=== PATIENT | female | born 1935 | race Caucasian/White ===

== ENCOUNTER 2016-07-06 06:25 | Emergency (ER) | payer MEDICARE ==
[~2016-07-06] VITALS: Ht 154.9 cm; Wt 63.5 kg
[~2016-07-06 06:25] MED LIST: AMLO5TAB22 PO; APIX2.5T PO; ATOR10TA PO; HUMSS SQ; HYDR25TA35 PO; LANTUS2P SC; MEMA28CA PO; METO25 PO; NITR0.4S SL; OMEP20TA39 PO
[2016-07-06 06:35] VITALS: BP 182/71; PULSE 77; RESP 22; TEMP 98.1; O2SAT 97
[2016-07-06 06:55] VITALS: BP 182/71; PULSE 79; RESP 16; TEMP 98.1; O2SAT 97
--- NOTE | 2016-07-06 06:56 | PD ---
HPI Chief Complaint: Fall Time Seen by Provider: 06:54 Travel History International Travel<30 days: No (unknown) Contact w/Intl Traveler<30days: No (unknown) History of Present Illness HPI 80yo F with PMH of PE on eliquis, HTN, IDDM presents to the ED with c/o left head, left shoulder and left hip pain s/p fall 20 minutes ago. Pt is suppose to use walker but did not so she think she slip and fell but unsure since she normally needs walker to walk. Pt also with chest pain after falling. Denies any dizziness or chest pain prior to falling. Denies any visual changes, sob, n /v, abdominal pain, focal weakness or numbness. PFSH Past Medical History Hx Anticoagulant Therapy: Yes Anemia: Yes Arthritis: Yes Asthma: No Autoimmune Disease: No Blood Disorders: No Anxiety: Yes Depression: Yes Heart Rhythm Problems: No Cancer: No Cardiovascular Problems: Yes High Cholesterol: Yes Chemotherapy: No Chest Pain: Yes Congestive Heart Failure: Yes COPD: Yes Cerebrovascular Accident: Yes (2016) Dementia: Yes Diabetes: Yes (TYPE 2 ) Diminished Hearing: No Endocrine: Yes Gastrointestinal Disorders: Yes GERD: Yes Glaucoma: No Genitourinary: Yes (Recurrent UTI's) Headaches: Yes (OCCASSIONAL) Hepatitis: No Hiatal Hernia: Yes Hypertension: Yes Immune Disorder: No Kidney Stones: No Musculoskeletal: Yes Neurologic: Yes Psychiatric: No Reproductive: No Respiratory: Yes Immunizations Current: No Migraines: No Myocardial Infarction: Yes Radiation Therapy: No Renal Failure: Yes (CRI) Seizures: No Sickle Cell Disease: No Sleep Apnea: No Thyroid Disease: No Ulcer: No Menopausal: Yes : 3 Para: 3 Past Surgical History Abdominal Surgery: Yes (GALLBLADDER REMOVED 2008) AICD: No Appendectomy: No Arteriovenous Shunt: No Cardiac Surgery: Yes (OPEN HEART SURGERY-TRIPLE BYPASS) Cholecystectomy: Yes (LAP DREW 2008) Coronary Artery Bypass Graft: Yes Ear Surgery: No Endocrine Surgery: No Eye Surgery: Yes (cataracts BILAT ) Genitourinary Surgery: No Gynecologic Surgery: No Insulin Pump: No Joint Replacement: No Oral Surgery: No Pacemaker: No Thoracic Surgery: No Other Surgery: Yes Social History Alcohol Use: Yes (occ) Tobacco Use: No (30 YEARS AGO) Substance Use: No Allergies-Medications (Allergen,Severity, Reaction): Coded Allergies: Contrast Media (Verified Allergy, Severe, ITCHING/REDNESS, 07/06/16) Codeine (Verified Adverse Reaction, Severe, N&V, 07/06/16) Sulfa (Verified Adverse Reaction, Severe, NAUSEA, 07/06/16) Reported Meds & Prescriptions Reported Meds & Active Scripts Active Reported Omeprazole 20 Mg Tab 20 Mg PO DAILY Metoprolol Tartrate 25 Mg Tab 25 Mg PO BID Namenda (Memantine) 10 Mg Tab 28 Mg PO DAILY Lantus Inj (Insulin Glargine) 1,000 Unit/10 Ml Vial 20 Units SQ HS Hydralazine (Hydralazine HCl) 25 Mg Tab 25 Mg PO TID Take with a meal Atorvastatin (Atorvastatin Calcium) 80 Mg Tab 80 Mg PO HS Eliquis (Apixaban) 2.5 Mg Tab 2.5 Mg PO BID Review of Systems Except as stated in HPI: all other systems reviewed are Neg Physical Exam Narrative GENERAL: 80yo F not in distress. SKIN: Warm and dry. HEAD: +Ecchymoses and hematoma left forehead. EYES: Pupils 3mm reactive and equal. EOMI. No scleral icterus. No injection or drainage. ENT: No nasal bleeding or discharge. Mucous membranes pink and moist. NECK: Trachea midline. No JVD. CARDIOVASCULAR: Regular rate and rhythm. No murmur appreciated. RESPIRATORY: No accessory muscle use. Clear to auscultation. Breath sounds equal bilaterally. GASTROINTESTINAL: Abdomen soft, non-tender, nondistended. No rebound tenderness or guarding. MUSCULOSKELETAL: LUQ: +TTP left proximal humerus. Radial pulse intact. Left hip: +Mild ttp. DP 2+. Able to flex and extend left hip. NEUROLOGICAL: Awake and alert. No obvious cranial nerve deficits. Motor grossly within normal limits. Normal speech. PSYCHIATRIC: Appropriate mood and affect; insight and judgment normal. Data Data Last Documented VS Vital Signs Date Time Temp Pulse Resp B/P Pulse Ox O2 Delivery O2 Flow Rate FiO2 07/06/16 09:14 82 16 175/76 98 07/06/16 06:55 Room Air 07/06/16 06:55 98.1 Orders Complete Blood Count With Diff (07/06/16 06:53) Basic Metabolic Panel (Bmp) (07/06/16 06:53) Prothrombin Time / Inr (Pt) (07/06/16 06:53) Act Partial Throm Time (Ptt) (07/06/16 06:53) Electrocardiogram (07/06/16 ) Chest, Single Ap (07/06/16 ) Ct Brain W/O Iv Contrast(Rout) (07/06/16 ) Acetaminophen (Tylenol) (07/06/16 07:00) Hip, Uni(Ap&Lat) W Ap Pelvis (07/06/16 ) Shoulder, Limited(2vws) (07/06/16 ) Tetanus/Diphtheria Tox Adult (Tetanus/Di (07/06/16 07:15) Labs Laboratory Tests Test 07/06/16 08:00 White Blood Count 6.7 TH/MM3 Red Blood Count 3.95 MIL/MM3 Hemoglobin 11.1 GM/DL Hematocrit 34.1 % Mean Corpuscular Volume 86.2 FL Mean Corpuscular Hemoglobin 28.1 PG Mean Corpuscular Hemoglobin 32.6 % Concent Red Cell Distribution Width 15.6 % Platelet Count 285 TH/MM3 Mean Platelet Volume 6.6 FL Neutrophils (%) (Auto) 72.5 % Lymphocytes (%) (Auto) 19.4 % Monocytes (%) (Auto) 5.7 % Eosinophils (%) (Auto) 1.8 % Basophils (%) (Auto) 0.6 % Neutrophils # (Auto) 4.9 TH/MM3 Lymphocytes # (Auto) 1.3 TH/MM3 Monocytes # (Auto) 0.4 TH/MM3 Eosinophils # (Auto) 0.1 TH/MM3 Basophils # (Auto) 0.0 TH/MM3 CBC Comment DIFF FINAL Differential Comment Prothrombin Time 11.0 SEC Prothromb Time International 1.0 RATIO Ratio Activated Partial 26.0 SEC Thromboplast Time Sodium Level 146 MEQ/L Potassium Level 4.2 MEQ/L Chloride Level 115 MEQ/L Carbon Dioxide Level 19.5 MEQ/L Anion Gap 12 MEQ/L Blood Urea Nitrogen 34 MG/DL Creatinine 1.90 MG/DL Estimat Glomerular Filtration 26 ML/MIN Rate Random Glucose 192 MG/DL Calcium Level 8.4 MG/DL [facility] Medical Decision Making Medical Screen Exam Complete: Yes Emergency Medical Condition: Yes Differential Diagnosis ICH vs. contusion vs. fracture Narrative Course 80yo F on anticoagulation here with left forehead hematoma and left shoulder and hip pain s/p fall. Pt was seen at the end of my shift so initial management was initiated by me. Signed out to next team Dr. Goins to follow up EKG, labs, CT, xrays and reevaluate for disposition Diagnosis Primary Impression: Fall Qualified Code: W19.XXXA - Fall, initial encounter Tressa Clifford DO Jul 06, 2016 06:55
[2016-07-06] MEDS ORDERED: ACETAMINOPHEN 325 MG TAB PO ONE (07:00)
[2016-07-06] MEDS ORDERED: ATOR1TAB18 PO (07:03)
[2016-07-06] MEDS ORDERED: APIX2.5T PO (07:03)
[2016-07-06] MEDS ORDERED: LANTUS2P SQ (07:03)
[2016-07-06] MEDS ORDERED: NAME10TA PO (07:03)
[2016-07-06] MEDS ORDERED: OMEP20TA PO (07:03)
[2016-07-06] MEDS ORDERED: METO25TA3 PO (07:03)
[2016-07-06] MEDS ORDERED: HYDR25TA35 PO (07:03)
[2016-07-06] MEDS ORDERED: TETANUS/DIPHTHERIA TOXOID ADULT 0.5 ML VIAL IM ONE (07:15)
--- NOTE | 2016-07-06 07:20 | RADHPO ---
EXAM DATE/TIME: 07/06/2016 07:03 [facility] COMPARISON: CHEST SINGLE AP, April 04, 2016, 13:43. INDICATIONS : Fall, chest pain. MEDICAL HISTORY : Stroke. Cardiovascular disease. SURGICAL HISTORY : None. ENCOUNTER: Initial ACUITY: 1 day PAIN SCORE: 3/10 LOCATION: Bilateral chest FINDINGS: Moderate severity chronic appearing interstitial lung disease again noted diffusely. No acute infiltr ates seen. No pleural effusion. No pneumothorax. Heart size stable, within normal limits. Old, healed right rib fractures are again noted. CONCLUSION: No acute abnormality demonstrated. Papito Li MD on July 06, 2016 at 7:19 Board Certified Radiologist. This report was verified electronically.
--- NOTE | 2016-07-06 07:23 | RADHPO ---
EXAM DATE/TIME: 07/06/2016 07:06 [facility] COMPARISON: PELVIS AP ONLY, January 23, 2015, 13:27. INDICATIONS : Fall, left hip pain. MEDICAL HISTORY : None. SURGICAL HISTORY : None. ENCOUNTER: Initial ACUITY: 1 day PAIN SCORE: 5/10 LOCATION: Left hip FINDINGS: Bones of the left hip are intact and normally aligned. Minimal joint space narrowing. Bilateral sacroiliac joint osteoarthritis again noted. There are vascular calcifications. CONCLUSION: Intact left hip. Papito Li MD on July 06, 2016 at 7:20 Board Certified Radiologist. This report was verified electronically.
--- NOTE | 2016-07-06 07:30 | RADHPO ---
EXAM DATE/TIME: 07/06/2016 07:19 [facility] COMPARISON: CT BRAIN W/O CONTRAST, August 01, 2015, 20:46. INDICATIONS : Trauma. Fell and hit her head. RADIATION DOSE: 60.74 CTDIvol (mGy) MEDICAL HISTORY : Cerebrovascular disease. Congestive heart failure. Diabetes mellitus type 2.Hypertension. Dementia. Myocardial infarction. SURGICAL HISTORY : CABG Cholecystectomy. ENCOUNTER: Initial ACUITY: 1 day PAIN SCALE: 9/10 LOCATION: Left frontal TECHNIQUE: Multiple contiguous axial images were obtained of the head. Using automated exposure control and adj ustment of the mA and/or kV according to patient size, radiation dose was kept as low as reasonably a chievable to obtain optimal diagnostic quality images. FINDINGS: CEREBRUM: Moderately severe atrophy again noted with unchanged ventricular prominence. There is chronic low-att enuation in the periventricular white matter. No evidence of midline shift, mass lesion, hemorrhage or acute infarction. No extra-axial fluid collections are seen. POSTERIOR FOSSA: The cerebellum and brainstem are intact. The 4th ventricle is midline. The cerebellopontine angle i s unremarkable. EXTRACRANIAL: There is a left frontal scalp hematoma. Mucoperiosteal thickening seen in the visualized paranasal si nuses. There is small mild fluid/debris in the visualized right maxillary air cell. I don't see any s inus blood. The mastoid air cells are clear. SKULL: The calvaria is intact. No evidence of skull fracture. CONCLUSION: 1. No bleed or other acute intracranial abnormality. 2. Left frontal scalp hematoma. 3. Acute on chronic-appearing sinus disease. Papito Li MD on July 06, 2016 at 7:27 Board Certified Radiologist. This report was verified electronically.
--- NOTE | 2016-07-06 08:00 | PD ---
Data Data Last Documented VS Vital Signs Date Time Temp Pulse Resp B/P Pulse Ox O2 Delivery O2 Flow Rate FiO2 07/06/16 06:55 98.1 79 16 182/71 97 Orders Complete Blood Count With Diff (07/06/16 06:53) Basic Metabolic Panel (Bmp) (07/06/16 06:53) Prothrombin Time / Inr (Pt) (07/06/16 06:53) Act Partial Throm Time (Ptt) (07/06/16 06:53) Electrocardiogram (07/06/16 ) Chest, Single Ap (07/06/16 ) Ct Brain W/O Iv Contrast(Rout) (07/06/16 ) Acetaminophen (Tylenol) (07/06/16 07:00) Hip, Uni(Ap&Lat) W Ap Pelvis (07/06/16 ) Shoulder, Limited(2vws) (07/06/16 ) Tetanus/Diphtheria Tox Adult (Tetanus/Di (07/06/16 07:15) Labs Laboratory Tests Test 07/06/16 08:00 White Blood Count 6.7 TH/MM3 Red Blood Count 3.95 MIL/MM3 Hemoglobin 11.1 GM/DL Hematocrit 34.1 % Mean Corpuscular Volume 86.2 FL Mean Corpuscular Hemoglobin 28.1 PG Mean Corpuscular Hemoglobin 32.6 % Concent Red Cell Distribution Width 15.6 % Platelet Count 285 TH/MM3 Mean Platelet Volume 6.6 FL Neutrophils (%) (Auto) 72.5 % Lymphocytes (%) (Auto) 19.4 % Monocytes (%) (Auto) 5.7 % Eosinophils (%) (Auto) 1.8 % Basophils (%) (Auto) 0.6 % Neutrophils # (Auto) 4.9 TH/MM3 Lymphocytes # (Auto) 1.3 TH/MM3 Monocytes # (Auto) 0.4 TH/MM3 Eosinophils # (Auto) 0.1 TH/MM3 Basophils # (Auto) 0.0 TH/MM3 CBC Comment DIFF FINAL Differential Comment Prothrombin Time 11.0 SEC Prothromb Time International 1.0 RATIO Ratio Activated Partial 26.0 SEC Thromboplast Time Sodium Level 146 MEQ/L Potassium Level 4.2 MEQ/L Chloride Level 115 MEQ/L Carbon Dioxide Level 19.5 MEQ/L Anion Gap 12 MEQ/L Blood Urea Nitrogen 34 MG/DL Creatinine 1.90 MG/DL Estimat Glomerular Filtration 26 ML/MIN Rate Random Glucose 192 MG/DL Calcium Level 8.4 MG/DL [facility] Supervised Visit with LUCRECIA: Yes Interpretation(s) LABS: CBC remarkable for mild anemia. BMP shows chronic kidney disease, although worsen baseline, bicarbonate 19.5. Coags unremarkable Narrative Course 80 year-old woman, multiple medical problems, here for fall. She has left- sided pain in her shoulder chest hip and hit her head. She's on blood thinners. CT heads negative. X-ray so far negative. Shoulder x-ray still pending. She is some pain in the left side of her chest, and appears to be from her fall. She does have a history of CAD. She is admitted back in March with positive troponins. They attempted a heart catheterization but she was unable to cooperate fully with it because of her dementia and confusion and so this is a pursue medical treatment. EKG is a little bit abnormal with some widespread ST-T wave changes. This looks similar to her EKG back in March. I discussed this with the son. It seems that her chest pain started after her fall and is likely related to the fall. The pursuing medical management only at this point according to her recent no. She looks otherwise well. This point we will continue medical management of her heart disease, outpatient follow-up, evaluate for any evidence of trauma from fall. Likely discharge. Diagnosis Primary Impression: Head injury Qualified Code: S09.90XA - Head injury, initial encounter Additional Impression: Fall Qualified Code: W19.XXXA - Fall, initial encounter Additional Instruction: Follow-up with her primary doctor in the next 2-3 days. Return to the emergency department for any chest pain, any trouble breathing, or any other new or worsening symptoms. Med/Other Pt SpecificInfo: No Change to Meds Disposition: 01 DISCHARGE HOME Condition: Stable Michele Goins MD Jul 06, 2016 08:00
--- NOTE | 2016-07-06 08:13 | RADHPO ---
EXAM DATE/TIME: 07/06/2016 07:53 [facility] COMPARISON: No previous studies available for comparison. INDICATIONS : Fall, left shoulder pain. MEDICAL HISTORY : None. SURGICAL HISTORY : None. ENCOUNTER: Initial ACUITY: 1 day PAIN SCORE: 5/10 LOCATION: Left shoulder FINDINGS: Two view examination of the left shoulder demonstrates no evidence of fracture or dislocation. The g lenohumeral and acromioclavicular joints are maintained. Bony mineralization is normal. CONCLUSION: No evidence of shoulder fracture. Papito Li MD on July 06, 2016 at 8:11 Board Certified Radiologist. This report was verified electronically.
[2016-07-06 08:15] LABS: AUTOMATED NEUTROPHIL # 4.9 TH/MM3 (1.8-7.7); BASOPHIL % 0.6 % (0.0-2.0); EOSINOPHIL # 0.1 TH/MM3 (0-0.4); EOSINOPHIL % 1.8 % (0.0-4.0); HEMATOCRIT 34.1 % (35.0-46.0); HEMO FLAGS DIFF FINAL; LYMPH % 19.4 % (9.0-44.0); LYMPHOCYTE # 1.3 TH/MM3 (1.0-4.8); MEAN CELL VOLUME 86.2 FL (80.0-100.0); MEAN CORPUSCULAR HEMOGLOBIN 28.1 PG (27.0-34.0); MEAN CORPUSCULAR HGB CONC 32.6 % (32.0-36.0); MONO % 5.7 % (0.0-8.0); NEUT % 72.5 % (16.0-70.0); PLATELET COUNT 285 TH/MM3 (150-450); RED BLOOD COUNT 3.95 MIL/MM3 (4.00-5.30); RED CELL DISTRIBUTION WIDTH 15.6 % (11.6-17.2); WHITE BLOOD COUNT 6.7 TH/MM3 (4.0-11.0)
[2016-07-06 08:20] LABS: POTASSIUM 4.2 MEQ/L (3.5-5.1)
[2016-07-06 08:23] LABS: BICARBONATE 19.5 MEQ/L (21.0-32.0)
[2016-07-06 08:40] VITALS: RESP 16
[2016-07-06 09:14] VITALS: BP 175/76
--- NOTE | 2016-07-07 16:26 | EKG ---
Date Performed: 07/06/2016 Time Performed: 07:28:46 PTAGE: 80 years EKG: Sinus rhythm Extensive ST-T changes may be due to myocardial ischemia Possible left ventricular hypertrophy. Abno rmal ECG PREVIOUS TRACING : 04/05/2016 01.45 DOCTOR: Deisy Barnes Interpretating Date/Time 07/07/2016 16:25:22
== END 2016-07-06 09:00 | disposition home or self-care (01) ==
LOC: PHED 06:25
DX: S09.90XA Unspecified injury of head, initial encounter (principal); M25.552 Pain in left hip; M25.512 Pain in left shoulder; R07.9 Chest pain, unspecified; I50.9 Heart failure, unspecified; E11.9 Type 2 diabetes mellitus without complications; I10 Essential (primary) hypertension; I25.2 Old myocardial infarction; Z86.711 Personal history of pulmonary embolism; R94.31 Abnormal electrocardiogram [ECG] [EKG]; Z79.01 Long term (current) use of anticoagulants; W01.0XXA Fall on same level from slipping, tripping and stumbling without subsequent striking against object, initial encounter; Y93.89 Activity, other specified; Y92.9 Unspecified place or not applicable
CPT/HCPCS: 70450; 71010; 73030; 73502; 80048; 85025; 85610; 85730; 93005

== ENCOUNTER 2016-07-26 07:40 | Emergency (ER) | payer MEDICARE ==
[~2016-07-26 07:40] MED LIST changes: -AMLO5TAB22 PO; -ATOR10TA PO; +ATOR1TAB18 PO; -HUMSS SQ; -LANTUS2P SC; +LANTUS2P SQ; -MEMA28CA PO; -METO25 PO; +METO25TA3 PO; +NAME10TA PO; -NITR0.4S SL; +OMEP20TA PO; -OMEP20TA39 PO
[2016-07-26 07:43] VITALS: BP 118/67; PULSE 68; RESP 18; TEMP 97.3; O2SAT 98
--- NOTE | 2016-07-26 08:09 | PD ---
HPI Chief Complaint: Altered Mental Status Time Seen by Provider: 07:47 Travel History International Travel<30 days: No Contact w/Intl Traveler<30days: No Traveled to known affect area: No History of Present Illness HPI This is a 80 year old female who has a history of dementia who was brought in by [facility] having been wandering around in her condo garage. The patient is quite confused and provides limited history. Her son reports this has happened multiple times in the past, and he was looking for her when we called and was upset she was brought in by [facility]. PFSH Past Medical History Hx Anticoagulant Therapy: Yes Anemia: Yes Arthritis: Yes Asthma: No Autoimmune Disease: No Blood Disorders: No Anxiety: Yes Depression: Yes Heart Rhythm Problems: No Cancer: No Cardiovascular Problems: Yes High Cholesterol: Yes Chemotherapy: No Chest Pain: Yes Congestive Heart Failure: Yes COPD: Yes Cerebrovascular Accident: Yes Dementia: Yes Diabetes: Yes Patient Takes Glucophage: No (unknown) Diminished Hearing: No Endocrine: Yes Gastrointestinal Disorders: Yes GERD: Yes Glaucoma: No Genitourinary: Yes (Recurrent UTI's) Headaches: Yes (OCCASSIONAL) Hepatitis: No Hiatal Hernia: Yes Hypertension: Yes Immune Disorder: No Implanted Vascular Access Dvce: Yes Kidney Stones: No Musculoskeletal: Yes Neurologic: Yes Psychiatric: No Reproductive: No Respiratory: Yes Immunizations Current: No Migraines: No Myocardial Infarction: Yes Radiation Therapy: No Renal Failure: Yes (CRI) Seizures: No Sickle Cell Disease: No Sleep Apnea: No Thyroid Disease: No Ulcer: No Menopausal: Yes : 3 Para: 3 Past Surgical History Abdominal Surgery: Yes (GALLBLADDER REMOVED 2008) AICD: No Appendectomy: No Arteriovenous Shunt: No Cardiac Surgery: Yes (OPEN HEART SURGERY-TRIPLE BYPASS) Cholecystectomy: Yes (LAP DREW 2008) Coronary Artery Bypass Graft: Yes Ear Surgery: No Endocrine Surgery: No Eye Surgery: Yes (cataracts BILAT ) Genitourinary Surgery: No Gynecologic Surgery: No Hysterectomy: No Insulin Pump: No Joint Replacement: No Neurologic Surgery: No Oral Surgery: No Pacemaker: No Thoracic Surgery: No Other Surgery: Yes Social History Alcohol Use: Yes (occ) Tobacco Use: No (30 YEARS AGO) Substance Use: No Allergies-Medications (Allergen,Severity, Reaction): Coded Allergies: Contrast Media (Verified Allergy, Severe, ITCHING/REDNESS, 07/06/16) Codeine (Verified Adverse Reaction, Severe, N&V, 07/06/16) Sulfa (Verified Adverse Reaction, Severe, NAUSEA, 07/06/16) Reported Meds & Prescriptions Reported Meds & Active Scripts Active Reported Omeprazole 20 Mg Tab 20 Mg PO DAILY Metoprolol Tartrate 25 Mg Tab 25 Mg PO BID Namenda (Memantine) 10 Mg Tab 28 Mg PO DAILY Lantus Inj (Insulin Glargine) 1,000 Unit/10 Ml Vial 20 Units SQ HS Hydralazine (Hydralazine HCl) 25 Mg Tab 25 Mg PO TID Take with a meal Atorvastatin (Atorvastatin Calcium) 80 Mg Tab 80 Mg PO HS Eliquis (Apixaban) 2.5 Mg Tab 2.5 Mg PO BID Review of Systems ROS Limitations: Poor Historian Physical Exam Narrative GENERAL:Frail elderly female in no distress. SKIN: Ecchymoses on the face. HEAD: Atraumatic. Normocephalic. EYES: Pupils equal and round. No injection or drainage. ENT: Moist mucous membranes NECK: Trachea midline. CARDIOVASCULAR: Regular rate and rhythm. No murmur appreciated. RESPIRATORY: Clear to auscultation. Breath sounds equal bilaterally. GASTROINTESTINAL: Abdomen soft, non-tender, nondistended. MUSCULOSKELETAL: No obvious deformities. NEUROLOGICAL: Oriented to person but not time or place. No obvious cranial nerve deficits. Moving all extremities. Data Data Last Documented VS Vital Signs Date Time Temp Pulse Resp B/P Pulse Ox O2 Delivery O2 Flow Rate FiO2 07/26/16 07:43 97.3 68 18 118/67 98 Orders Complete Blood Count With Diff (07/26/16 07:49) Comprehensive Metabolic Panel (07/26/16 07:49) Urinalysis - C+S If Indicated (07/26/16 07:49) [facility] Medical Decision Making Medical Screen Exam Complete: Yes Emergency Medical Condition: Yes Interpretation(s) Afebrile, no tachycardia, normotensive Differential Diagnosis Urinary tract infection, electrolyte abnormality, subdural hematoma, dementia Narrative Course This is a 80-year-old female who presents to the emergency department having been wandering around the parking garage of her condominium. She has a long history of dementia. The nurse spoke to her son who reports that this is happened in the past and she got out of the apartment. He was looking for her when he received the call that she was here. I don't think she has an acute medical emergency and she seems to be at her neurologic baseline. I don't think any testing is warranted. Patient will be discharged home. Diagnosis Primary Impression: Dementia Qualified Code: G30.9 - Alzheimer's dementia without behavioral disturbance, unspecified timing of dementia onset Patient Instructions: General Instructions Additional Instructions: If you develop severe chest pain, shortness of breath, sweating, lightheadedness , dizziness or difficulty breathing return to the emergency department immediately. Med/Other Pt SpecificInfo: No Change to Meds Disposition: 01 DISCHARGE HOME Condition: Stable Jennifer Kaur MD Jul 26, 2016 08:09
== END 2016-07-26 09:03 | disposition home or self-care (01) ==
LOC: PHED 07:40
DX: F03.90 Unspecified dementia, unspecified severity, without behavioral disturbance, psychotic disturbance, mood disturbance, and anxiety (principal); E78.00 Pure hypercholesterolemia, unspecified; I50.9 Heart failure, unspecified; E11.9 Type 2 diabetes mellitus without complications; I10 Essential (primary) hypertension; I25.2 Old myocardial infarction
CPT/HCPCS: 99284